=== PATIENT | male | born 1990 | race Caucasian/White ===

== ENCOUNTER 2020-02-15 17:54 | Emergency (ER) | payer MEDICAID ==
[~2020-02-15] VITALS: Ht 167.6 cm; Wt 69.0 kg
[2020-02-15 21:26] VITALS: BP 134/78
== END 2020-02-15 21:27 | disposition home or self-care (01) ==
LOC: ER 17:54
DX: S06.0X0A Concussion without loss of consciousness, initial encounter (principal); S00.83XA Contusion of other part of head, initial encounter; W22.8XXA Striking against or struck by other objects, initial encounter; Y93.89 Activity, other specified; Y92.89 Other specified places as the place of occurrence of the external cause; Y99.8 Other external cause status
CPT/HCPCS: 99283

== ENCOUNTER 2021-03-28 08:15 | Emergency (ER) | payer MEDICAID ==
[~2021-03-28] VITALS: Ht 167.6 cm; Wt 87.0 kg
[2021-03-28 09:41] LABS: CHLORIDE 107 mEq/L (98-107); INR 1.1; PROTHROMBIN TIME 11.3 sec (9.6-11.0)
[2021-03-28 10:00] LABS: CLARITY URINE CLEAR (CLEAR); COLOR URINE YELLOW (YELLOW); KETONES URINE NEGATIVE (NEGATIVE); LEUKOCYTE ESTERASE URINE NEGATIVE (NEGATIVE); NITRITE URINE NEGATIVE (NEGATIVE); OCCULT BLOOD URINE NEGATIVE (NEGATIVE); PH URINE 6.5 (4.5-8.0); PROTEIN URINE NEGATIVE (NEGATIVE); SPECIFIC GRAVITY URINE 1.021 (1.005-1.030); UROBILINOGEN URINE 0.2 E.U./dL (0.2-1.0)
[2021-03-28] MEDS ORDERED: VISCOUS LIDOCAINE 2% 15 ML UDC PO STA (10:06)
[2021-03-28] MEDS ORDERED: MAGNESIUM/ALUMINUM HYDROXIDE/SIMETHICONE 30ML UDC PO STA (10:06)
[2021-03-28 10:09] LABS: BASOPHILS % 0.9 % (0.0-2.0); EOSINOPHILS % 0.6 % (0.0-5.0); HEMATOCRIT. 48.5 % (42.0-52.0); HEMOGLOBIN. 17.6 g/dL (14.0-18.0); LYMPHOCYTES % 23.4 % (20.0-50.0); MEAN CORPUSCULAR HEMOGLOBIN 33.1 pg (28.0-32.0); MEAN CORPUSCULAR VOLUME 91.4 fL (80.0-94.0); MONOCYTES % 6.6 % (2.0-8.0); NEUTROPHILS % 68.5 % (40.0-76.0); PLATELET 217 x1000/uL (130-400); RED BLOOD CELL COUNT 5.31 mill/uL (4.7-6.1)
[2021-03-28] MEDS ORDERED: SODIUM CHLORIDE 0.9% 1,000 ML IV ONE ×2 (10:30→12:15)
[2021-03-28] MEDS ORDERED: OMEP20CA14 MT (11:25)
[2021-03-28] MEDS ORDERED: LORAZEPAM 2MG/ML CPJ IV ONE (13:30)
[2021-03-28 14:30] VITALS: BP 158/93
== END 2021-03-28 14:50 | disposition home or self-care (01) ==
LOC: ER 08:15
DX: R10.13 Epigastric pain (principal); E86.0 Dehydration; F10.10 Alcohol abuse, uncomplicated; F14.10 Cocaine abuse, uncomplicated; F12.10 Cannabis abuse, uncomplicated; F17.210 Nicotine dependence, cigarettes, uncomplicated; Y90.9 Presence of alcohol in blood, level not specified; Z87.828 Personal history of other (healed) physical injury and trauma
CPT/HCPCS: 36415; 80053; 81003; 83690; 85025; 85610; 93005; 96361; 96374; 99285; J2060; J7030; Z7610

== ENCOUNTER 2021-09-16 15:24 | Emergency (ER) | payer MEDICAID ==
[~2021-09-16] VITALS: Ht 167.6 cm; Wt 91.0 kg
[~2021-09-16 15:24] MED LIST: OMEP20CA14 MT
[2021-09-16] MEDS ORDERED: MAGNESIUM/ALUMINUM HYDROXIDE/SIMETHICONE 30ML UDC PO STA ×2 (15:43→17:29)
[2021-09-16] MEDS ORDERED: VISCOUS LIDOCAINE 2% 15 ML UDC PO STA (15:43)
[2021-09-16] MEDS ORDERED: DICYCLOMINE 10 MG/5 ML ORAL SYR PO STA (15:43)
[2021-09-16 16:02] LABS: BASOPHILS % 0.6 % (0.0-2.0); EOSINOPHILS % 5.2 % (0.0-5.0); HEMOGLOBIN. 16.8 g/dL (14.0-18.0); LYMPHOCYTES % 29.7 % (20.0-50.0); MEAN CORPUSCULAR HEMOGLOBIN 31.9 pg (28.0-32.0); MEAN PLATELET VOLUME 8.5 fl (7.4-10.4); NEUTROPHILS % 58.5 % (40.0-76.0); PLATELET 259 x1000/uL (130-400); RED BLOOD CELL COUNT 5.27 mill/uL (4.7-6.1); RED CELL DISTRIBUTION WIDTH 13.2 % (11.6-14.6)
[2021-09-16 16:08] LABS: CHLORIDE 103 mEq/L (98-107)
[2021-09-16] MEDS ORDERED: VISCOUS LIDOCAINE 2% 15 ML UDC PO NR (17:29)
[2021-09-16] MEDS ORDERED: FAMOTIDINE 20MG TABLET PO NR (17:30)
[2021-09-16] MEDS ORDERED: FAMO-135 MT (18:43)
[2021-09-16] MEDS ORDERED: MAG-55 MT (18:43)
[2021-09-16 18:45] VITALS: BP 125/92
== END 2021-09-16 18:50 | disposition home or self-care (01) ==
LOC: ER 15:24
DX: K29.70 Gastritis, unspecified, without bleeding (principal); R74.01 Elevation of levels of liver transaminase levels; R03.0 Elevated blood-pressure reading, without diagnosis of hypertension; R73.9 Hyperglycemia, unspecified; F10.10 Alcohol abuse, uncomplicated; Y90.9 Presence of alcohol in blood, level not specified; Z71.41 Alcohol abuse counseling and surveillance of alcoholic; F14.10 Cocaine abuse, uncomplicated; F12.90 Cannabis use, unspecified, uncomplicated
CPT/HCPCS: 36415; 71045; 80053; 84484; 85025; 93005; 99285

== ENCOUNTER 2023-03-26 22:23 | Emergency (ER) | payer MEDICAID ==
[~2023-03-26] VITALS: Ht 167.6 cm; Wt 91.0 kg
[~2023-03-26 22:23] MED LIST changes: +FAMO-135 MT; +MAG-55 MT
[2023-03-26 22:30] VITALS: O2SAT 99
[2023-03-27] MEDS ORDERED: IBUPROFEN 600MG TABLET PO ONE (01:30)
[2023-03-27 01:34] VITALS: BP 133/91
[2023-03-27 01:51] VITALS: PULSE 84; RESP 14; TEMP 98
== END 2023-03-27 01:52 | disposition home or self-care (01) ==
LOC: ER 22:23
DX: S80.812A Abrasion, left lower leg, initial encounter (principal); F14.10 Cocaine abuse, uncomplicated; F12.10 Cannabis abuse, uncomplicated; G89.11 Acute pain due to trauma; V49.49XA Driver injured in collision with other motor vehicles in traffic accident, initial encounter; Y93.89 Activity, other specified; Y92.89 Other specified places as the place of occurrence of the external cause; Y99.8 Other external cause status
CPT/HCPCS: 73590; 99283

== ENCOUNTER 2023-11-18 23:54 | Emergency (ER) | payer MEDICAID ==
[~2023-11-18] VITALS: Ht 167.6 cm; Wt 91.0 kg
[2023-11-19 00:01] VITALS: O2SAT 98
[2023-11-19 03:03] VITALS: BP 149/67; PULSE 63; RESP 18; TEMP 98.6
== END 2023-11-19 03:06 | disposition home or self-care (01) ==
LOC: ER 11-19 00:10
DX: M20.011 Mallet finger of right finger(s) (principal)
CPT/HCPCS: 29130; 73130; 99283

== ENCOUNTER 2024-04-07 02:12 | Emergency (ER) | payer MEDICAID ==
[~2024-04-07] VITALS: Ht 167.6 cm; Wt 68.0 kg
[2024-04-07 02:31] VITALS: O2SAT 99
[2024-04-07 03:45] LABS: CLARITY URINE TURBID (CLEAR); COLOR URINE YELLOW (YELLOW); GLUCOSE URINE NEGATIVE (NEGATIVE); KETONES URINE NEGATIVE (NEGATIVE); LEUKOCYTE ESTERASE URINE TRACE (NEGATIVE); NITRITE URINE NEGATIVE (NEGATIVE); OCCULT BLOOD URINE NEGATIVE (NEGATIVE); PROTEIN URINE NEGATIVE (NEGATIVE); SPECIFIC GRAVITY URINE 1.015 (1.005-1.030)
[2024-04-07] MEDS: KETOROLAC 15MG/ML VIAL IM ONE (03:46)
[2024-04-07 04:08] LABS: RBC URINE 0-2 /hpf (0-2); SQUAMOUS EPITHELIAL CELL URINE RARE /lpf (RARE/1+); WBC URINE 0-2 /hpf (0-2)
[2024-04-07 04:09] LABS: AMORPHOUS SEDIMENT URINE 2+ /lpf; BACTERIA URINE 1+
[2024-04-07 06:24] VITALS: BP 140/82; PULSE 78; RESP 18; TEMP 98.5
== END 2024-04-07 05:37 | disposition home or self-care (01) ==
LOC: ER 02:12
DX: S38.01XA Crushing injury of penis, initial encounter (principal); F15.10 Other stimulant abuse, uncomplicated; F14.10 Cocaine abuse, uncomplicated; X58.XXXA Exposure to other specified factors, initial encounter; Y93.89 Activity, other specified; Y92.89 Other specified places as the place of occurrence of the external cause; Y99.8 Other external cause status
CPT/HCPCS: 81003; 96372; 99283; J1885; Z7610

== ENCOUNTER 2024-05-09 06:25 | Emergency (ER) | payer MEDICAID ==
[~2024-05-09] VITALS: Ht 167.6 cm; Wt 91.0 kg
[2024-05-09 06:37] VITALS: O2SAT 97
[2024-05-09] MEDS: FLUORESCEIN SODIUM 1MG/STRIP RIGHTEYE ONE (08:54)
[2024-05-09] MEDS: TETRACAINE 0.5% OPHTH DROPS 4ML RIGHTEYE ONE (08:55)
[2024-05-09] MEDS ORDERED: OCUFLX RIGHTEYE (09:29)
[2024-05-09 09:32] VITALS: BP 119/87; PULSE 87; RESP 16; TEMP 98.2
== END 2024-05-09 09:52 | disposition home or self-care (01) ==
LOC: ER 06:45
DX: S00.211A Abrasion of right eyelid and periocular area, initial encounter (principal); F14.10 Cocaine abuse, uncomplicated; F12.10 Cannabis abuse, uncomplicated; W45.8XXA Other foreign body or object entering through skin, initial encounter; Y93.89 Activity, other specified; Y92.89 Other specified places as the place of occurrence of the external cause; Y99.8 Other external cause status
CPT/HCPCS: 99283